=== PATIENT | female | born 1960 | race Caucasian/White ===

== ENCOUNTER → 2017-02-25 | Outpatient (CLI) | payer BC ==
[~2017-02-25] MED LIST: CETI10 PO; FAMO40 PO; HYDACE5 PO; LEVSOD25 PO; PRED20 PO; RXHYDACE
== END ==
LOC: LAB 12:35
DX: N89.8 Other specified noninflammatory disorders of vagina (principal)
CPT/HCPCS: 87070; 87205

== ENCOUNTER 2019-04-17 06:04 | Day surgery (SDC) | payer OTHER, BC ==
[~2019-04-17] VITALS: Ht 152.4 cm; Wt 53.4 kg
[2019-04-17] MEDS ORDERED: CLIMARA1 EACH (06:31)
--- NOTE | 2019-04-17 08:47 | NUR ---
04/17/19 0847 Radha Roca C/O PAIN 09/16. PO TRAMADOL GIVEN. SPOKE TO DR. CHILDRESS ORDER FOR IV FENTANYL RECEIVED. 25 MCG IV FENTANYL GIVEN. DR. CHILDRESS TO SEE PT, GAVE 15 MG IV TORADOL.
== END 2019-04-17 09:03 | disposition home or self-care (01) ==
LOC: ORSCSDS 06:04
PROVIDERS: Orthopaedic Surgery
PROC: 0LN70ZZ Release Right Hand Tendon, Open Approach (ICD-10-PCS; principal; 2019-04-17 07:30)
DX: M65.331 Trigger finger, right middle finger (principal); M65.341 Trigger finger, right ring finger; Z87.891 Personal history of nicotine dependence
CPT/HCPCS: J1885; J2250; J2405; J2704; J3010

== ENCOUNTER 2019-06-19 07:01 | Day surgery (SDC) | payer OTHER, BC ==
[~2019-06-19] VITALS: Ht 152.4 cm; Wt 57.2 kg
[~2019-06-19 07:01] MED LIST changes: +CLIMARA1 EACH
[2019-06-19] MEDS ORDERED: LEVSOD75 PO (08:03)
[2019-06-19] MEDS ORDERED: FISH OIL 1,001000 MG PO (08:04)
[2019-06-19] MEDS ORDERED: FOLIXAPURE5000 UNIT PO (08:04)
[2019-06-19] MEDS ORDERED: PROBIOTIC1 EAC1 PO (08:04)
[2019-06-19] MEDS ORDERED: MAGNESIUM OXID500 MG PO (08:05)
== END 2019-06-19 10:05 | disposition home or self-care (01) ==
LOC: ORSCSDS 07:01
PROVIDERS: Ophthalmology
PROC: 080PXZZ Alteration of Left Upper Eyelid, External Approach (ICD-10-PCS; principal; 2019-06-19 08:30)
PROC: 080NXZZ Alteration of Right Upper Eyelid, External Approach (ICD-10-PCS; principal; 2019-06-19 08:30)
DX: H02.831 Dermatochalasis of right upper eyelid (principal); H02.834 Dermatochalasis of left upper eyelid; E11.9 Type 2 diabetes mellitus without complications; E03.9 Hypothyroidism, unspecified; Z87.891 Personal history of nicotine dependence; Z79.899 Other long term (current) drug therapy
CPT/HCPCS: J2704; J7040

== ENCOUNTER → 2022-01-12 | Outpatient (CLI) | payer BC ==
[~2022-01-12] MED LIST changes: +FISH OIL 1,001000 MG PO; +FOLIXAPURE5000 UNIT PO; +LEVSOD75 PO; +MAGNESIUM OXID500 MG PO; +PROBIOTIC1 EAC1 PO
== END | disposition home or self-care (01) ==
LOC: LAB SHORT 11:36
DX: L82.1 Other seborrheic keratosis (principal)
CPT/HCPCS: 88305

== ENCOUNTER → 2022-03-01 | Outpatient (CLI) | payer BC | END | disposition home or self-care (01) | LOC: LAB SHORT 17:29 → LAB 17:29 | DX: N89.8 Other specified noninflammatory disorders of vagina (principal); R30.0 Dysuria | CPT/HCPCS: 87086 ==